=== PATIENT | female | born 1990 | race Caucasian/White ===

== ENCOUNTER 2018-07-15 14:56 | Inpatient (IN) | payer BC, OTHER ==
[~2018-07-15] VITALS: Ht 160 cm; Wt 63.5 kg
[2018-07-15 14:50] VITALS: BP 129/83
--- NOTE | 2018-07-15 15:00 | NUR ---
Pre-Admission Pre-admission assessment performed in the intake department of [facility]. Pt is A&O and ambulatory with a steady gait. She does not appear intoxicated and answers questions appropriately. Vital signs are B/P 129/83, HR 92, RR 18, O2 sat 98%, T 98.2, pain 0/10. She reports that she has been drinking Vodka 750mL 4 days per week. Last used 07/13/18 at night. She also uses Methamphetamine 0.25 grams per day. Last used today at 1215. Pt is stable and admission is to continue on the [facility].
[2018-07-15] MEDS ORDERED: TRAZ-214 PO (16:11)
[2018-07-15] MEDS ORDERED: LURA40TA PO (16:11)
--- NOTE | 2018-07-15 17:00 | NUR ---
Admission Note: Admitted at 27 year old female for medically supervised withdrawal from ETOH under the care of Dr. Howard Gastelum. Patient is AAOx4. Good eye contact noted. She is noted with facial flushing, gross tremors to BUE, restlessness, teary eyed and appears anxious and irritable. She verbalizes that she is nervous being in detox again. Redirection was provided. VS: Temp 98.2, Pulse 92, RR 17, BP 129/83, O2 sat 98% via RA, PL 0/10 at this time. Patient is emotionally labile and easily agitated. CIWA 15 at this time. She reports allergies to morphine. Follows a regular diet at home and wishes to be FULL CODE. Has past medical hx of insomnia, bipolar disorder, chronic pancreatitis, cholecystectomy, anxiety and SA at 18 years old. She denies any seizure history, withdrawal induced delirium, withdrawal induced cardiac complication, overdoses or blackouts in the past. She reports that she has had x 7 episodes of involuntary psych hospitalization (5150) in the past due to self harm with the last one in 2014. She verbalizes that she has attempted to commit suicide at 18 years old by ingesting multiple pills and received medical care for it. She denies any current S/I or /I at this time and denies any AV hallucinations. She reports that she is currently being seen by a psychiatrist at this time and has a PCP named Dr. Woody Menjivar. Medications brought from home: 1. Latuda 40 mg PO at [facility] for bipolar disorder. 2. Trazodone 100 mg PO at [facility] for insomnia. 3. Ativan 0.5 mg PO BID for anxiety. Substance Use History: 1. ETOH (Vodka) since 10 years old. Patient reports that she drinks 750ml 4 to 7 times a week for the past 4 months. Last drink was on 07/13/2018, 750ml Vodka. 2. Methamphetamine - since 10 years old. Patient reports smoking 3 grams daily for since 06/17/2018. Last use was day of admission, 3 grams at 1215. 3. Ativan - since 27 years old. Patient reports that she is prescribed this medication and is only taking it as needed. Her last use was on , 0.5mg. Treatment History: Patient reports that she has been to treatment 4x during her life. She states she only completed it once at 18 years old which successfully made her sober for 7 years. Her last treatment was at [facility] x 13 days then left AMA. Motivation/Triggers for Relapse: Patient states that ETOH has never been a problem with her and it has always been meth. She states "I never thought I had a problem with ETOH until I would socially drink on the weekends then it eventually became a daily thing and 1 bottle of Vodka since February. I tried to drink 4x a week to slowly pace myself sometimes but it was hard. Then in May I went back to smoking methamphetamine again." She reports that the cause of her relapse was due to her fiance relapsing as well. She states "We were both doing well, he is also an alcoholic but he recently relapse in February as well. I thought I could stop drinking but I guess because I am an addict, my craving for meth was replaced by ETOH and I thought I could do it all on my own." She reports that it was hard for her stop drinking was because of strong cravings which made it difficult for her. She states that the reason why she wants to get sober today is: "I've been addicted to this stuff and I am just so tired of it. I'm drained. I'm exhausted. My fiance doesn't think we have a problem but we do. It has affected my relationship with my kids, it's terrible for my pancreas and I am so done." She verbalizes that she will do everything she can to stay sober which is to complete treatment, get the proper support that she needs and follow through. Orientation to the facility provided. Explained unit's policies and procedures as well as medication disposal of narcs. She verbalized good understanding. Body check done. No skin breakdown noted. Skin check done. 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 Dr. Gastelum made aware of patient's arrival in the unit and will enter orders. Patient will be started on PRN Valium at this time to manage her withdrawal symptoms. Orders noted and carried out. Safety precautions in place. Will continue to monitor closely.
[2018-07-15 17:06] LABS: *URINE HCG, QUAL NEGATIVE (NEGATIVE)
[2018-07-15 17:11] LABS: *AMPHETAMINE, URINE POSITIVE (NEGATIVE); *BARBITURATE, URINE NEGATIVE (NEGATIVE); *CANNABINOID, URINE NEGATIVE (NEGATIVE); *COCCAINE, URINE NEGATIVE (NEGATIVE); *OPIATE, URINE NEGATIVE (NEGATIVE); *PHENCYCLIDINE SCREEN,URINE NEGATIVE (NEGATIVE)
[2018-07-15] MEDS ORDERED: ONDANSETRON ODT 4 MG TAB.RAPDIS SL PRN (17:45)
[2018-07-15] MEDS ORDERED: LOPERAMIDE HCL 2 MG CAPSULE PO PRN ×2 (17:45)
[2018-07-15] MEDS ORDERED: THIAMINE HCL 200 MG/2 ML VIAL IM ONE (17:45)
[2018-07-15] MEDS ORDERED: MAGNESIUM HYDROXIDE 30 ML LIQUID UDC PO PRN (17:45)
[2018-07-15] MEDS ORDERED: MIRALAX 17 GM POWD.PACK PO PRN (17:45)
[2018-07-15] MEDS ORDERED: DIAZEPAM 5 MG TABLET PO PRN (17:45)
[2018-07-15] MEDS ORDERED: LORAZEPAM 2 MG/1 ML VIAL IM PRN (17:45)
[2018-07-15] MEDS ORDERED: MAG HYDROX/AL HYDROX/SIMETH 30 ML LIQUID UDC PO PRN (17:45)
[2018-07-15] MEDS ORDERED: DIAZEPAM 10 MG TABLET PO PRN (17:45)
[2018-07-15] MEDS: THIAMINE HCL 100 MG TABLET PO SCH (17:45)
[2018-07-15] MEDS ORDERED: ONDANSETRON 4 MG/2 ML VIAL IM PRN (17:45)
[2018-07-15] MEDS ORDERED: diphenhydrAMINE 50 MG CAPSULE PO PRN (17:45)
[2018-07-15 17:51] LABS: BASOPHILS # (AUTO) 0.1 K/uL (0.0-8.0); BASOPHILS % (AUTO) 0.8 % (0.0-2.0); EOSINOPHILS # (AUTO) 0.1 K/uL (0.0-0.7); EOSINOPHILS % (AUTO) 1.3 % (0.0-7.0); HEMOGLOBIN 13.9 g/dL (10.9-14.3); LYMPHOCYTES # (AUTO) 1.9 K/uL (20.0-40.0); MEAN CORPUSCULAR HEMOGLOBIN 29.7 uug (24.7-32.8); MEAN CORPUSCULAR HGB CONC 34 g/dL (32.3-35.6); MEAN CORPUSCULAR VOLUME 87.6 fL (75.5-95.3); MONOCYTES # (AUTO) 0.5 K/uL (2.0-10.0); MONOCYTES % (AUTO) 6.2 % (0.0-11.0); NEUTROPHILS # (AUTO) 5.4 K/uL (1.8-8.9); NEUTROPHILS % (AUTO) 67.7 % (38.5-71.5); PLATELET COUNT (AUTO) 341 K/uL (179-408); RED BLOOD CELL COUNT(AUTO) 4.69 MIL/uL (3.63-4.92)
[2018-07-15 18:02] LABS: ETHANOL < 3 MG/DL (0-0)
[2018-07-15 18:04] LABS: ALANINE AMINOTRANSFERASE 38 U/L (14-59); ALKALINE PHOSPHATASE 50 U/L (50-136); AMYLASE 66 U/L (25-115); ASPARTATE AMINOTRANSFERASE 26 U/L (15-37); BILIRUBIN,TOTAL 1.3 mg/dL (0.2-1.0); CARBON DIOXIDE 30 mmol/L (21-32); GLUCOSE 80 mg/dL (74-106); LIPASE 244 U/L (73-393); MAGNESIUM 2.2 mg/dL (1.8-2.4); TOTAL PROTEIN, SERUM 8.4 g/dL (6.4-8.2); UREA NITROGEN, BLOOD 17 mg/dL (7-18)
[2018-07-15] MEDS: DIAZEPAM 10 MG TABLET PO PRN (18:17)
[2018-07-15] MEDS: FOLIC ACID 1 MG TABLET PO SCH (18:17)
[2018-07-15] MEDS: MULTIVITAMINS,THERAPEUTIC TABLET PO SCH (18:17)
[2018-07-15] MEDS: IBUPROFEN 600 MG TABLET PO PRN (18:17)
--- NOTE | 2018-07-15 18:17 | NUR ---
Valium 10 mg PO/Motrin 600 mg PO: CIWA 15, patient noted with anxiety, irritability, agitation, gross tremors, headache and intermittent perspiration. Medicated patient with Valium 10 mg PO and Motrin 600 mg PO as ordered. Will monitor for effectiveness.
[2018-07-15 18:22] LABS: CHLORIDE 99 mmol/L (98-107); POTASSIUM 3.7 mmol/L (3.5-5.1)
[2018-07-15 18:24] LABS: THYROID STIMULATING HORMONE 0.823 mIU/mL (0.358-3.740)
--- NOTE | 2018-07-15 19:10 | NUR ---
End of Shift Notes: Patient is on PRN Valium at this time to manage symptoms related to ETOH withdrawal. VS monitored closely. No significant abnormalities noted. Withdrawal symptoms were closely monitored. Initial CIWA upon admission 15, patient presented with gross tremors, anxiety, agitation, irritability, emotionally labile, intermittent perspiration and generalized discomfort. PRN Valium 10 mg PO and Motrin 600 mg PO was given at 1817 with effectiveness to be reassessed. Appetite good. All needs met and attended. Will continue to monitor closely.
--- NOTE | 2018-07-15 19:30 | NUR ---
Start of Shift /PRN Medication Reassessment Patient Received. Per endorsement, patient is a 27 year old female that was admitted for ETOH Withdrawal. Patient is currently receiving PRN medications for increased signs and symptoms of withdrawal. Patient was noted with a CIWA of 15 and was given PRN Valium and PRN Motrin for pain with medications to be reassessed. Patient also takes home medications Latuda 40mg for bipolar as well as Trazodone 100mg for sleep. Upon rounds patient is noted in bed with eyes closed but is easily awakened to verbal stimuli. Breathing even and non labored. Patient is able to verbalize "the medication really helped take the edge off but I still feel anxious." Patient is noted to be tremulous to touch, verbalizing increased chills and sweats, anxiety, restlessness, and agitation. PRN Medications noted to be effective. All needs attended to promptly. Will continue to monitor.
[2018-07-15 20:33] VITALS: BP 116/65
[2018-07-16 00:11] VITALS: BP 119/68
[2018-07-16] MEDS: DIAZEPAM 10 MG TABLET PO PRN ×3 (00:16→09:33)
[2018-07-16] MEDS: CLONIDINE HCL 0.1 MG TABLET PO PRN ×2 (00:17→20:28)
--- NOTE | 2018-07-16 00:24 | NUR ---
PRN Medication Administration Patient is noted awake, restless, anxious, agitated, tremulous, and increased chills and sweats. PRN Valium 10mg administered with PRN clonidine. Will continue to monitor.
--- NOTE | 2018-07-16 01:29 | NUR ---
PRN Medication Reassessment Patient is noted in bed with eyes closed. breathing even and non labored. No signs of restlessness or facial grimacing noted. PRN Valium 10mg and PRN Clonidine noted to be effective. Will continue so monitor.
[2018-07-16 04:40] VITALS: BP 112/71
[2018-07-16] MEDS: IBUPROFEN 600 MG TABLET PO PRN ×2 (05:00→20:34)
--- NOTE | 2018-07-16 05:03 | NUR ---
PRN Medication Administration Patient is noted awake and verbalizing increased anxiety, chills, restlessness, agitation, tremulous, sweats, and headache. PRN Motrin and PRN Valium 10mg administered. Will continue to monitor.
--- NOTE | 2018-07-16 06:00 | NUR ---
PRN Medication Reassessment Patient is noted in bed awake. Breathing even and non labored. Patient able to verbalize "the Valium really helps me to relax and my headache has gone away." PRN Valium and Motrin noted to be effective.
--- NOTE | 2018-07-16 06:56 | NUR ---
End of Shift Patient is noted in bed with eyes closed. Breathing even and non labored. No signs of restlessness or facial grimacing noted. Patient is a 27 year old female that was admitted for ETOH Withdrawal. Patient is currently receiving PRN medications for increased signs and symptoms of withdrawal. Patient continued to be monitored for increased signs and symptoms of withdrawal which include anxiety, restlessness, agitation, tremors, chills, and sweats. Patient received PRN Valium 10mg x2, Clonidine, and Motrin with medication noted to be effective. Last noted CIWA 12. Patient noted to sleep a total of 7 hours. All needs attended to promptly. Will endorse to continue to monitor.
--- NOTE | 2018-07-16 07:30 | NUR ---
START OF SHIFT Pt 27 y/o female admitted for etoh withdrawal. Pt received in room on bed with eyes closed resting but arousable to name. Pt alert and oriented to name, place, and time. Perrla. Skin warm and moist to touch. Respirations even and unlabored. Bilateral hand tremors noted. Appears disheveled. Clothes scattered throughout the room. Encouraged to maintain hygiene. Anxious and restless. Pressured speech. Bilateral hand tremors noted. Irritable. Intermittent perspiration. Complaints of generalized discomfort. It was reported that pt slept for 7 hours last night. Pt is on prn valium. Bed on lowest position with side rails x2 up for safety. Call light within reach.
[2018-07-16 08:00] VITALS: BP 117/68
[2018-07-16] MEDS ORDERED: TUBERCULIN,PURIF.PROT.DERIV. 5 TU/0.1 ML TEST ID ONE (09:00)
[2018-07-16] MEDS: FOLIC ACID 1 MG TABLET PO SCH (09:33)
[2018-07-16] MEDS: THIAMINE HCL 100 MG TABLET PO SCH (09:33)
[2018-07-16] MEDS: MULTIVITAMINS,THERAPEUTIC TABLET PO SCH (09:33)
--- NOTE | 2018-07-16 09:33 | NUR ---
PRN VALIUM ciwa=12. Anxious and restless. pressured speech. Bilateral hand tremors. Irritable. Pacing. Complaints of generalized discomfort. Valium 10mg po prn per MD order given.
--- NOTE | 2018-07-16 10:33 | NUR ---
PRN VALIUM EVAL ciwa=5. anxious. Pressured speech. Some pacing noted. Pt states medication effective.
[2018-07-16] MEDS ORDERED: 3 DAY TAPER OF VALIUM-SERENITY PROTOCOL PO PRN (11:30)
[2018-07-16 12:00] VITALS: BP 117/85
[2018-07-16] MEDS: ACETAMINOPHEN 325 MG TABLET PO PRN (14:18)
[2018-07-16] MEDS: DIAZEPAM 5 MG TABLET PO SCH ×2 (14:18→20:28)
--- NOTE | 2018-07-16 14:21 | NUR ---
PRN TYLENOL Pt with c/o headaches. Tylenol po prn per MD order given.
--- NOTE | 2018-07-16 15:21 | NUR ---
PRN TYLENOL EVAL pt states medication effective.
[2018-07-16 16:00] VITALS: BP 98/64
[2018-07-16] MEDS ORDERED: MISCELLANEOUS MED XX PRN (16:00)
--- NOTE | 2018-07-16 16:12 | NUR ---
RT prompted pt to attend groups.
[2018-07-16] MEDS: HYDROXYZINE PAMOATE 25 MG CAPSULE PO PRN (17:32)
--- NOTE | 2018-07-16 17:35 | NUR ---
PRN ciwa=8. Anxious and restless. Fidgety. Foot tapping. irritable. pressured speech. Bilateral hand tremors. Valium 5mg po prn per MD order given. Vistaril po prn per MD order given. Addendum: 07/16/18 at 1738 by JASPAL SIGALA RN correct title PRN VALIUM VISTARIL
--- NOTE | 2018-07-16 18:35 | NUR ---
PRN VISTARIL VALIUM EVAL ciwa=6. anxious and restless. Pressured speech. irritable. Fidgety. Pt states medication effective.
--- NOTE | 2018-07-16 19:22 | NUR ---
END OF SHIFT Pt 27 y/o female admitted for etoh withdrawal. Pt alert and oriented to name, place, and time. Perrla. Skin warm and moist to touch. Respirations even and unlabored. Appears disheveled. Clothes and empty drink bottles scattered throughout the room. Encouraged to maintain hygiene. Anxious and restless. Pressured speech. Foot tapping. Fidgety. Bilateral hand tremors. Intermittent perspiration. Complaints of generalized discomfort. Pt attended group activity. Ciwa=10 @1600. Pt is on a 3 day valium taper and is on day 1. Bed on lowest position with side rails x2 up for safety. Call light within reach.
--- NOTE | 2018-07-16 19:35 | NUR ---
START OF SHIFT Patient is a 27-year-old female admitted on 07/15/18 for ETOH withdrawal. Patient started a 3-day Valium taper today, tolerating well. Patients last CIWA was 10, per endorsement. Patient received PRN Valium 10mg and PRN Valium 5mg earlier today before taper started, both noted to be effective. Patient also received PRN Tylenol and Vistaril, also effective. Upon assessment, patient is alert and oriented x4. Patient reports anxiety and generalized body aches. Patient reports difficulty sleeping and states, Cat had a headache all day. Patient is on fall and seizure precautions with no history of seizure. Safety measures in place, side rails up x2, bed locked in low position, call light within reach. Will continue to monitor.
[2018-07-16 20:00] VITALS: BP 107/68
[2018-07-16] MEDS: TRAZODONE 100 MG TABLET PO SCH (20:27)
--- NOTE | 2018-07-16 20:28 | NUR ---
PRN CLONIDINE Patient reports anxiety, agitation and restlessness. PRN Clonidine 0.1mg given PO. Safety measures in place, side rails up x2, bed locked in low position, call light within reach. Will monitor for effectiveness.
--- NOTE | 2018-07-16 20:34 | NUR ---
PRN MOTRIN Patient reports headache 12/06 and states, "I think I would like Motrin after all, my headache and body aches might feel better." PRN Motrin 600mg given PO. Safety measures in place, call light within reach. Will monitor for effectiveness.
--- NOTE | 2018-07-16 21:28 | NUR ---
PRN CLONIDINE REASSESSMENT Patient reports improvement in anxiety and states, "when I withdraw sometimes my heart pounds and it feel like it's beating really loud. The Clonidine helps it feel less loud if that makes sense." PRN Clonidine noted to be effective. Safety measures in place, side rails up x2, bed locked in low position, call light within reach. Will continue to monitor.
--- NOTE | 2018-07-16 21:34 | NUR ---
PRN MOTRIN REASSESSMENT Patient reports headache 4/10 and states that body aches have also improved. PRN Motrin noted to be effective. Safety measures in place, side rails up x2, bed locked in low, call light within reach. Will continue to monitor.
[2018-07-17] VITALS: BP 105/62
--- NOTE | 2018-07-17 04:00 | NUR ---
VITALS REFUSED Patient refused vitals at 0400. Respirations even and unlabored, 16/min. Safety measures in place, side rails up x2, bed locked in low position, call light within reach. Will continue to monitor.
[2018-07-17] MEDS: HYDROXYZINE PAMOATE 25 MG CAPSULE PO PRN (06:32)
[2018-07-17] MEDS: IBUPROFEN 600 MG TABLET PO PRN ×2 (06:32→18:03)
--- NOTE | 2018-07-17 06:32 | NUR ---
PRN VISTARIL & MOTRIN Patient is awake complaining of headache and anxiety, overall "I don't feel great but I don't want my Valium right now." PRN Motrin and Vistaril given PO. Safety measures in place, side rails up x2, bed locked in low position, call light within reach. Patient requests water and snacks from kitchen verbalizing that her appetite had improved. Will endorse to day shift.
--- NOTE | 2018-07-17 07:20 | NUR ---
END OF SHIFT Patient is a 27-year-old female admitted on 07/15/18 for ETOH withdrawal. Patient started a 3-day Valium taper yesterday, tolerating well. Patients last CIWA was 13 this morning at 0630 when she woke up. Patient received PRN Clonidine and Motrin last night, noted to be effective. Patient received PRN Motrin and PRN Vistaril this morning at 0632, to be reassessed. Patient slept for 10 hours, total intake of 1,355mL void x1, stool x0. Patient is requesting her Latuda stating, I havent taken it for two days and Im afraid Ill start to get mood swings and racing thoughts that I cant stop. Patient is on fall and seizure precautions with no history of seizure. Safety measures in place, side rails up x2, bed locked in low position, call light within reach. Will endorse to day shift.
--- NOTE | 2018-07-17 07:30 | NUR ---
START OF SHIFT Pt 27 y/o female admitted for etoh withdrawal. Pt received in room awake watching television. Pt alert and oriented to name, place, and time. Perrla. Skin warm and moist to touch. Respirations even and unlabored. Appears disheveled. Clothes scattered throughout the room. Encouraged to maintain hygiene. Anxious and restless. Pressured speech. Bilateral hand tremors noted. Fidgety. Complaints of generalized discomfort. It was reported that pt slept for 10 hours last night.Pt is on a 3 day valium taper and is on day 2. Bed on lowest position with side rails x2 up for safety. Call light within reach.
[2018-07-17 08:00] VITALS: BP 84/56
[2018-07-17] MEDS: THIAMINE HCL 100 MG TABLET PO SCH (08:38)
[2018-07-17] MEDS: ACETAMINOPHEN 325 MG TABLET PO PRN (08:38)
[2018-07-17] MEDS: FOLIC ACID 1 MG TABLET PO SCH (08:38)
[2018-07-17] MEDS: DIAZEPAM 5 MG TABLET PO SCH ×2 (08:38→21:25)
[2018-07-17] MEDS: MULTIVITAMINS,THERAPEUTIC TABLET PO SCH (08:38)
--- NOTE | 2018-07-17 08:43 | NUR ---
PRN MIRALAAX TYLENOL Pt with complaints of headache 12/06. Tylenol po prn per MD order given. States no BM x2 days. Miralaax prn per MD order given.
--- NOTE | 2018-07-17 09:25 | NUR ---
Therapist prompted client to attend group therapy.
--- NOTE | 2018-07-17 09:43 | NUR ---
PRN MIRALAAX TYLENOL Pt states headache 09/05. States no bm at this time.
[2018-07-17 10:07] LABS: HEPATITIS B SURFACE AG Negative (Negative)
[2018-07-17 12:00] VITALS: BP 98/60
[2018-07-17] MEDS ORDERED: MAGNESIUM CITRATE 296 ML BOTTLE PO ONE (13:00)
[2018-07-17] MEDS ORDERED: DICYCLOMINE HCL 20 MG TABLET PO PRN (13:00)
--- NOTE | 2018-07-17 13:48 | NUR ---
REFUSE MG CITRATE Pt refused mg citrate. States had a large BM.
--- NOTE | 2018-07-17 13:50 | NUR ---
PRN BENTYL Complaints of stomach cramps. Bentyl po prn per MD order given.
--- NOTE | 2018-07-17 14:50 | NUR ---
ALLYSONN CY SHELTON Pt states medication effective.
[2018-07-17 16:00] VITALS: BP 93/48
--- NOTE | 2018-07-17 18:07 | NUR ---
PRN MALOOX MOTRIN Complaints of heartburn. Maloox po prn per MD order given. Complaints of body pain 12/06. Motrin po prn per MD order given.
--- NOTE | 2018-07-17 19:07 | NUR ---
PRN LOUISE TOLBERT States medication effective. States body pain 2/10
--- NOTE | 2018-07-17 19:08 | NUR ---
END OF SHIFT Pt 27 y/o female admitted for etoh withdrawal. Pt alert and oriented to name, place, and time. Perrla. Skin warm and moist to touch. Respirations even and unlabored. Appears disheveled. Clothes scattered throughout the room. Encouraged to maintain hygiene. Anxious and restless. Pressured speech. Bilateral hand tremors. Intermittent perspiration. Complaints of generalized discomfort. Pt attended group activity. Ciwa=10 @1600. Pt is on a 3 day valium taper and is on day 2. Bed on lowest position with side rails x2 up for safety. Call light within reach.
--- NOTE | 2018-07-17 19:30 | NUR ---
Start of Shift Patient Received. Per endorsement, patient is a 27 year old female that continues to be monitored for increased signs and symptoms of ETOH withdrawal. She continues on a modified Valium taper. Patient received PRN Tylenol, Motrin, Miralax, and Maalox with medications noted to be effective. Last noted CIWA 10. Upon rounds patient was noted in bed with eyes closed. Patient was easily awakened to verbal stimuli. Breathing even and non labored. Vitals rendered. Patient denied any signs or symptoms of withdrawal. Patient verbalizes of increased fatigue due to withdrawal process. She was able to verbalize that taper medications have been effective in minimizing signs and symptoms of withdrawal. All needs attended to promptly. Will continue plan of care as ordered.
[2018-07-17 20:30] VITALS: BP 106/62
[2018-07-17] MEDS: LATUDA 40 MG PO SCH (21:24)
[2018-07-17] MEDS: TRAZODONE 100 MG TABLET PO SCH (21:25)
[2018-07-18 00:53] VITALS: BP 96/51
--- NOTE | 2018-07-18 00:54 | NUR ---
CIWA Assessment Patient is noted in bed with eyes closed. Breathing even and non labored. Patient is noted to be easily awakened to verbal stimuli upon entering room. Patient is compliant with vital signs as ordered. She is noted to easily fall back asleep with no complications noted. CIWA assessment not able to be completed as per order. Will continue to monitor.
--- NOTE | 2018-07-18 04:26 | NUR ---
CIWA and Vitals Patient is noted in bed with eyes closed. breathing even and non labored. No signs of restlessness or facial grimacing noted. patient refused vitals. CIWA not able to be completed as per order. Will continue to monitor.
--- NOTE | 2018-07-18 07:03 | NUR ---
End of Shift Patient is noted in bed with eyes closed. Breathing even and non labored. No signs of restlessness or facial grimacing noted. Patient continues on a modified Valium taper for increased signs and symptoms of ETOH withdrawal. No PRN medications administered. Last noted CIWA 13. Patient noted to sleep a total of 7 hours. Patient verbalizes of increased fatigue, anxiety, restlessness, agitation, chills, and sweats. She verbalizes that taper medications have been effective in minimizing signs and symptoms of withdrawal. All needs attended to promptly. Will endorse to continue plan of care as ordered.
[2018-07-18 08:00] VITALS: BP 106/62
--- NOTE | 2018-07-18 08:05 | NUR ---
Received PT A/O X 4. She presents with anxious mood and congruent affect. Fine tremors noted to bilateral hands. She is fidgety. CIWA 11 . Modified Valium taper in progress to manage s/s of w/d. Encouraged group attendance to improve coping skills and prevent relapse. Encouraged increased fluids to assist in facilitating detox process. Will continue to monitor and manage s/s of w/d.
[2018-07-18] MEDS: MULTIVITAMINS,THERAPEUTIC TABLET PO SCH (08:40)
[2018-07-18] MEDS: FOLIC ACID 1 MG TABLET PO SCH (08:41)
[2018-07-18] MEDS: THIAMINE HCL 100 MG TABLET PO SCH (08:41)
[2018-07-18] MEDS ORDERED: DIAZEPAM 5 MG TABLET PO SCH (09:00)
[2018-07-18 12:00] VITALS: BP 107/63
--- NOTE | 2018-07-18 12:15 | NUR ---
Therapist prompted client to attend all daily group therapy sessions.
[2018-07-18] MEDS: ACETAMINOPHEN 325 MG TABLET PO PRN ×2 (12:51→18:56)
[2018-07-18] MEDS ORDERED: TRAZ-214 PO (15:07)
[2018-07-18] MEDS ORDERED: HYDR-3895 PO (15:07)
[2018-07-18] MEDS ORDERED: DICY20TA28 PO (15:07)
[2018-07-18] MEDS ORDERED: LURA40TA PO (15:07)
[2018-07-18] MEDS ORDERED: CLON0.1T14 PO (15:07)
[2018-07-18 16:44] VITALS: BP 128/60
--- NOTE | 2018-07-18 19:04 | NUR ---
END OF SHIFT; Pt completed modified Valium taper today to manage s/s of w/d which include anxiety,fatigue,restlessness and body aches. PRN Tylenol given and effective and given at end of shift as well . Last CIWA 6. She is scheduled for discharge tomorrow am to [facility].She attended some groups. She expressed enthusiasm toward recovery. Will pass shift report to oncoming night nurse.
--- NOTE | 2018-07-18 19:30 | NUR ---
Start of shift note Received report from day shift nurse. Patient is a 27 year old female admitted for ETOH withdrawal. Patient completed 5 day Subutex and 5 day Valium taper. Patient is medically cleared to be discharge tomorrow. Patient was given PRN Tylenol. Last CIWA 6. Patient in the room. Alert and oriented . Patient reports anxiety, irritability, fatigue and intermittent perspiration. Patient present with eye avoidant and disheveled. Safety measures in place. Will continue to monitor
[2018-07-18 20:00] VITALS: BP 116/61
[2018-07-18] MEDS: LATUDA 40 MG PO SCH (20:09)
[2018-07-18] MEDS: TRAZODONE 100 MG TABLET PO SCH (20:09)
[2018-07-18] MEDS: CLONIDINE HCL 0.1 MG TABLET PO PRN (21:33)
--- NOTE | 2018-07-18 21:33 | NUR ---
PRN Catapres administration Patient reports anxiety and restlessness. Will monitor for effectiveness
--- NOTE | 2018-07-18 22:33 | NUR ---
PRN Catapres re-assessment Patient lying in bed with eyes closed. Respiration even and unlabored. Will continue to monitor
--- NOTE | 2018-07-19 | NUR ---
CIWA deferred/VS refused Patient lying in bed with eyes closed. Respiration even and unlabored. VS refused.
--- NOTE | 2018-07-19 04:00 | NUR ---
CIWA deferred/VS refused Patient lying in bed with eyes closed. Respiration even and unlabored. VS refused.
--- NOTE | 2018-07-19 07:20 | NUR ---
End of shift note Monitored patient throughout shift. Patient completed 5 day Subutex and 5 day Valium taper. Patient is medically cleared to be discharge today. Patient and oriented x 3. Patient reported anxiety, irritability, fatigue and intermittent perspiration. Patient was given PRN Clonidine, effective. Safety measures in place. Will continue to monitor. Slept 9 hours. Fluid intake 1,250 ml. Voided x 2. No BM. Last CIWA 6.
--- NOTE | 2018-07-19 07:45 | NUR ---
START OF SHIFT Pt is a 27 yr old female, AA&Ox4. Pt was admitted on 07/15/18 for ETOH w/d and completed a 3 day Valium taper as ordered. Received report from supervisor phosphoric acid nurse. Pt was given Clonidine PRN during the night. Last CIWA score was 6. Pt slept for 9 hrs. Pt is c/o headache 5/10 and is observed with facial grimacing. Pt does states she is "happy" to be discharging today. Skin is intact. warm and dry to touch. Safety precautions observed. will continue to f/u with discharge.
[2018-07-19 08:00] VITALS: BP 99/54
[2018-07-19] MEDS: MULTIVITAMINS,THERAPEUTIC TABLET PO SCH (08:36)
[2018-07-19] MEDS: THIAMINE HCL 100 MG TABLET PO SCH (08:36)
[2018-07-19] MEDS: IBUPROFEN 600 MG TABLET PO PRN (08:36)
[2018-07-19] MEDS: FOLIC ACID 1 MG TABLET PO SCH (08:36)
--- NOTE | 2018-07-19 08:36 | NUR ---
PRN GIVEN Pt was c/o headache 11/05. Motrin 600mg PO PRN was given as ordered. encouraged increase fluid intake. Will continue to monitor.
--- NOTE | 2018-07-19 10:00 | NUR ---
DISCHARGE NOTE Pt is a 27 yr old female, AA&Ox4. Pt was admitted on 07/15/18 for ETOH withdrawal and completed a 3 day Valium taper as ordered. Pt has been cooperative with medication regimen and plan of care. Pt was c/o a headache and was given Motrin 600mg PO PRN prior to discharged. Medication was effective. Pt stated, "I'm anxious to go already, I'm really happy to continue with rehab". Pt was educated on discharged summary and prescriptions. Pt was able to verbalize understanding. Pt was discharged off the unit at 0946 in stable condition. Pt was discharged to [facility]. Pt left with all belongings, valuables and home medications.
== END 2018-07-19 09:46 | disposition other institution (70) | DRG 895 ==
LOC: SRC 14:56
PROVIDERS: ADMIT Family Medicine Addiction Medicine; ATTEND Family Medicine Addiction Medicine
PROC: HZ2ZZZZ Detoxification Services for Substance Abuse Treatment (ICD-10-PCS; principal; 2018-07-15)
PROC: HZ31ZZZ Individual Counseling for Substance Abuse Treatment, Behavioral (ICD-10-PCS; 2018-07-17)
PROC: HZ41ZZZ Group Counseling for Substance Abuse Treatment, Behavioral (ICD-10-PCS; 2018-07-18)
DX: F10.230 Alcohol dependence with withdrawal, uncomplicated (principal); K85.90 Acute pancreatitis without necrosis or infection, unspecified; F15.23 Other stimulant dependence with withdrawal; F41.1 Generalized anxiety disorder; G47.00 Insomnia, unspecified; F17.213 Nicotine dependence, cigarettes, with withdrawal; Z65.3 Problems related to other legal circumstances; F31.9 Bipolar disorder, unspecified; Z91.5 Personal history of self-harm; K59.00 Constipation, unspecified; F13.230 Sedative, hypnotic or anxiolytic dependence with withdrawal, uncomplicated; Z90.49 Acquired absence of other specified parts of digestive tract
CPT/HCPCS: 36415; 70030-TC; 80307; 80324; 83690; 83735; 84443; 84703; 85025; 86580; 86592; 86705; 86803; 87340; 87806; A4663; G0480; J3411